=== PATIENT | female | born 1990 | race Caucasian/White ===

== ENCOUNTER 2016-05-24 08:44 | Emergency (ER) | payer OTHER ==
[~2016-05-24] VITALS: Ht 175.3 cm; Wt 86.2 kg
--- NOTE | 2016-05-24 09:03 | ED GENERAL ADULT ---
History of Present Illness General Chief Complaint: General Adult Stated Complaint: ANXIETY Source: patient, family Exam Limitations: no limitations Vital Signs & Intake/Output Vital Signs & Intake/Output Vital Signs Date Time Temp Pulse Resp B/P Pulse O2 O2 Flow FiO2 Ox Delivery Rate 05/24 1135 97.8 72 16 115/70 98 Room Air 05/24 0910 Room Air Room Air 05/24 0849 98.6 91 16 150/79 100 Room Air Allergies Coded Allergies: MDX - Seafood (SEAFOOD) ("SICK" 11/06/12) Reconcile Medications Levonorgestrel-Ethin Estradiol ([place]-28 Tablet) 0.15 MG-30 MCG TABLET 1 TAB PO DAILY CONTROL (Reported) Triage Note: pt to ed for anxiety, reports she started seeing a counselor approx 3 weeks ago "but its not getting any better" denies si/hi. Triage Nurses Notes Reviewed? yes : No Patient currently breastfeeds: No HPI: Patient presented with increasing anxiety. Patient states that she has suffered panic attacks for a few years but they have been getting much worse. Patient began seeing a therapist 3 weeks ago but her anxiety continues to escalate. Patient states that she has been unable to even go to work because her anxiety is just overwhelming. Patient denies any suicidal homicidal ideations. Patient denies any hallucinations. Patient states that her anxiety is getting in the way of her activities of daily living. Patient denies any nausea or vomiting. There's been no weight loss. Patient denies any drug use. Past History Travel History Traveled to [place] past 21 day No Medical History Any Pertinent Medical History? see below for history Neurological: NONE EENT: NONE Cardiovascular: NONE Respiratory: NONE Gastrointestinal: NONE Hepatic: NONE Renal: NONE Musculoskeletal: NONE Psychiatric: anxiety Endocrine: NONE Blood Disorders: NONE Cancer(s): NONE Surgical History Surgical History: non-contributory Psychosocial History What is your primary language Khmer Tobacco Use: Never used ETOH Use: denies use Illicit Drug Use: denies illicit drug use Family History Hx Contributory? No Review of Systems Review of Systems Constitutional: Reports: no symptoms. EENTM: Reports: no symptoms. Respiratory: Reports: no symptoms. Cardiovascular: Reports: no symptoms. GI: Reports: no symptoms. Genitourinary: Reports: no symptoms. Musculoskeletal: Reports: no symptoms. Skin: Reports: no symptoms. Neurological/Psychological: Reports: see HPI, anxiety. Hematologic/Endocrine: Reports: no symptoms. Immunologic/Allergic: Reports: no symptoms. All Other Systems: Reviewed and Negative Physical Exam Physical Exam General Appearance: well developed/nourished, alert, awake, anxious, moderate distress Head: atraumatic, normal appearance Eyes: Bilateral: PERRL, EOMI. Ears, Nose, Throat: normal pharynx, normal ENT inspection, hearing grossly normal Neck: normal inspection, supple, full range of motion Respiratory: normal breath sounds, chest non-tender, no respiratory distress, lungs clear Cardiovascular: regular rate/rhythm, normal peripheral pulses Gastrointestinal: normal bowel sounds, soft, non-tender, no organomegaly Back: normal inspection Extremities: normal inspection, normal capillary refill, normal range of motion, no edema Neurologic/Psych: no motor/sensory deficits, awake, alert, oriented x 3, normal gait, normal mood/affect Skin: intact, normal color, warm/dry Lymphatic: no anterior cervical chris Core Measures ACS in differential dx? No CVA/TIA Diagnosis: No Severe Sepsis Present: No Septic Shock Present: No Progress Differential Diagnoses I considered the following diagnoses in my evaluation of the patient: [ Electrolyte abnormality, hyperthyroidism, anxiety] Plan of Care: Orders Procedure Date/time Status Add-on Test (ER Only) 05/24 1114 Active TOTAL TRIODOTHYROXINE 05/24 0907 Active FREE T4 05/24 0907 Active ED CRISIS PSYCH CONSULT 05/24 0847 Active URINE DRUGS OF ABUSE 05/24 0846 Complete URINALYSIS 05/24 0846 Complete THYROID STIMULATING HORMONE 05/24 0846 Active HUMAN BETA HCG SCREEN 05/24 0846 Active ETHANOL 05/24 0846 Active COMPREHENSIVE METABOLIC PANEL 05/24 0846 Active CBC WITHOUT DIFFERENTIAL 05/24 0846 Complete Laboratory Tests 05/24/16 1016: Urine Opiates Screen < 100.00, Methadone Screen < 40, Barbiturate Screen < 60, Ur Phencyclidine Scrn < 6.00, Amphetamines Screen < 100, U Benzodiazepines Scrn < 85, Urine Cocaine Screen < 50, Urine Cannabis Screen < 5.00, Urinalysis LIGHT H, Urine Color YEL, Urine Clarity HAZY H, Urine pH 6.0, Ur Specific [place] 1.015, Urine Protein NEG, Urine Ketones NEG, Urine Nitrite NEG, Urine Bilirubin NEG, Urine Urobilinogen 0.2, Ur Leukocyte Esterase NEG, Ur Microscopic SEDIMENT EXAMINED, Urine RBC 1-3, Urine WBC 1-3 H, Ur Epithelial Cells MOD H, Urine Hemoglobin NEG, Urine Glucose NEG 05/24/16 0907: Anion Gap 11, Estimated GFR > 60, BUN/Creatinine Ratio 15.6, Glucose 87, Calcium 9.2, Total Bilirubin 0.5, AST 18, ALT 28, Alkaline Phosphatase 58, Total Protein 6.8, Albumin 4.0, Globulin 2.8, Albumin/Globulin Ratio 1.4, TSH 16.500 H, Free T4 Pending, Total T3 Pending, Total Beta HCG NEGATIVE, CBC w Diff MAN DIFF ORDERED, RBC 5.01, MCV 69.3 L, MCH 22.3 L, RDW 17.6 H, MPV 9.0, Gran % 58.7, Lymphocytes % 29.2, Monocytes % 7.2, Eosinophils % 4.1, Basophils % 0.8, Absolute Granulocytes 3.2, Absolute Lymphocytes 1.6, Absolute Monocytes 0.4, Absolute Eosinophils 0.2, Absolute Basophils 0, Platelet Estimate VERIFIED BY SMEAR, Hypochromic-Microcytic 1+, Poikilocytosis 1+, Anisocytosis 1+, Microcytic Cells 1+, Ovalocytes 1+, PUBS MCHC 32.1 L, Serum Alcohol < 10.0 Initial ED EKG: none Comments: PT WAS TOLD THAT SHE WAS HYPOTHYROID WHILE IN HIGH SCHOOL. SHE WAS PUYT AND MEDS FOR IT BUT SHE STOPPED THEM A FEW YEARS AGO. Departure Departure Disposition: HOME OR SELF CARE Condition: Stable Clinical Impression Primary Impression: Anxiety Referrals: [facility] Additional Instructions: FOLLOW UP AT [facility] ON THURSDAY SOMEONE WILL CALL YOU WITH AN APPOINTMENT FOR [facility] OF[facility] MEDICAL FOLLOW UP Departure Forms: Customer Survey General Discharge Information Prescriptions: Current Visit Scripts Hydroxyzine Pamoate (Vistaril) 1 CAP PO TID PRN ANXIETY #20 CAP Critical Care Note Critical Care Note Critical Care Time: non-applicable
[2016-05-24 09:20] LABS: ABSOLUTE BASOPHIL COUNT 0 /CUMM (0.0-0.2); ABSOLUTE EOSINOPHIL COUNT 0.2 /CUMM (0.0-0.7); ABSOLUTE GRANULOCYTE CT 3.2 /CUMM (1.4-6.5); ABSOLUTE LYMPH COUNT 1.6 /CUMM (1.2-3.4); ABSOLUTE MONOCYTE COUNT 0.4 /CUMM (0.10-0.60); BASOPHIL % 0.8 % (0.0-2.0); EOSINOPHIL % 4.1 % (0-5); GRANULOCYTE % 58.7 % (42.2-75.2); HEMATOCRIT 34.7 % (37-47); MEAN CORPUSCULAR HGB 22.3 PG (27.0-31.0); MEAN CORPUSCULAR HGB CONC 32.1 G/DL (33.0-37.0); MEAN CORPUSCULAR VOLUME 69.3 FL (81.0-99.0); PLATELET COUNT 204 /CUMM (130-400); RBC DISTRIBUTION WIDTH 17.6 % (11.5-14.5); RED BLOOD CELL CT 5.01 /CUMM (4.20-5.40); WHITE BLOOD CELL COUNT 5.5 /CUMM (4.8-10.8)
--- NOTE | 2016-05-24 11:34 | ED PSYCH CRISIS CONSULTATION ---
Crisis Consult Basic Assessment Date of Consult: 05/24/16 Responsible Person/Accompanied By: with mother Insurance Authorization: Insurance #1: Insurance name: CLEMENTINE WILL Phone number: Policy number: [id number] Group number: [id number] Authorization number: ED Provider: Patient's ED Provider: EVIE GARCIA,JHONATAN Shepard Primary Care Physician: Patient's PCP: PATIENT HAS NO PRIMARY CARE DR PCP's Phone Number: Current Psychiatrist: none Chief Complaint: General Adult Patient's Quote: "I feel so anxious all the time, I don't know what to do." Present Illness: Pt. was a 25 year old female who presented to the ED with her mother complaining of a high level of anxiety. She stated it had been beginning to interfere with her ability to work and this was distressing to her. 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 She stated her job was supportive and allowed to her call out if she needed. Of note, her TSH level was 16, which according to the ED DrJose would make her hypomanic and would most likely result in more lethargic feelings. ED Dr. planned to instruct pt. in follow up for Thyroid and meds. Pt.'s mother reported her daughter had told her she was "afriad to drink milk for fear that it was bad" and was afraid of driving. Pt. also reportedly felt her arms and legs had a crawling sensation like bugs under her skin. She denied AH/VH and SI/HI both past and present. Pt. accepted a [facility] appointment on 05/26 at 9:30 am. Patient's Address: [address] [place] [address] Other Phone Number: Who Do You Live With? Other (see notes) (Fiance) Family/Informants Interviewed: Mother was present for the interview and became tearful when asked about her daughter. She stated she's never seen her daughter so distraught. she reported her daughter was so anxious and upset that she spent most of the time crying and that was hard for her to see. She stated she might feel more reassured if her daughter went on medications. She stated she worried about how her daughter would do for the next two days in anticipating of daughter starting her work week (Sun-Tues) Allergies - Coded Allergies: MDX - Seafood (SEAFOOD) ("SICK" 11/06/12) Current Medications - Scheduled Medications Levonorgestrel-Ethin Estradiol ([place]-28 Tablet) 0.15 MG-30 MCG TABLET 1 TAB PO DAILY CONTROL #84 (Reported) Entered as Reported by JOE VARELA on 05/24/16 1136 Laboratory Results: Laboratory Tests 05/24/16 1016: Urine Opiates Screen < 100.00, Methadone Screen < 40, Barbiturate Screen < 60, Ur Phencyclidine Scrn < 6.00, Amphetamines Screen < 100, U Benzodiazepines Scrn < 85, Urine Cocaine Screen < 50, Urine Cannabis Screen < 5.00, Urinalysis LIGHT H, Urine Color YEL, Urine Clarity HAZY H, Urine pH 6.0, Ur Specific [place] 1.015, Urine Protein NEG, Urine Ketones NEG, Urine Nitrite NEG, Urine Bilirubin NEG, Urine Urobilinogen 0.2, Ur Leukocyte Esterase NEG, Ur Microscopic SEDIMENT EXAMINED, Urine RBC 1-3, Urine WBC 1-3 H, Ur Epithelial Cells MOD H, Urine Hemoglobin NEG, Urine Glucose NEG 05/24/16 0907: Anion Gap 11, Estimated GFR > 60, BUN/Creatinine Ratio 15.6, Glucose 87, Calcium 9.2, Total Bilirubin 0.5, AST 18, ALT 28, Alkaline Phosphatase 58, Total Protein 6.8, Albumin 4.0, Globulin 2.8, Albumin/Globulin Ratio 1.4, TSH 16.500 H, Free T4 Pending, Total T3 Pending, Total Beta HCG NEGATIVE, CBC w Diff MAN DIFF ORDERED, RBC 5.01, MCV 69.3 L, MCH 22.3 L, RDW 17.6 H, MPV 9.0, Gran % 58.7, Lymphocytes % 29.2, Monocytes % 7.2, Eosinophils % 4.1, Basophils % 0.8, Absolute Granulocytes 3.2, Absolute Lymphocytes 1.6, Absolute Monocytes 0.4, Absolute Eosinophils 0.2, Absolute Basophils 0, Platelet Estimate VERIFIED BY SMEAR, Hypochromic-Microcytic 1+, Poikilocytosis 1+, Anisocytosis 1+, Microcytic Cells 1+, Ovalocytes 1+, PUBS MCHC 32.1 L, Serum Alcohol < 10.0 Past History Past Medical History Neurological: NONE EENT: NONE Cardiovascular: NONE Respiratory: NONE Gastrointestinal: NONE Hepatic: NONE Renal: NONE Musculoskeletal: NONE Psychiatric: anxiety Endocrine: NONE Blood Disorders: NONE Cancer(s): NONE Past Surgical History Surgical History: non-contributory Psychosocial History Strengths/Capabilities: Pt. was polite and able to articulate herself. Physical Limitations (Interventions): none reported Psychiatric Treatment History Psych Treatment Psychiatric Treatment Yes Inpatient Treatment No Outpatient Treatment Yes Location of Treatment [facility] Reason for Treatment anxiety Dates of Treatment 04/30/2016 to present (3 weeks) Response to Treatment no change so far Diagnosis by History: Depression/ anxiety Substance Use/Abuse History Drug Use/Abuse Substances Used/Abused No Substance Abuse Treatment Substance Abuse Treatment Past Substance Abuse [place] No Current Mental Status Mental Status Orientation: Person, Place, Situation Affect: Anxious, Sad Speech: Soft Neuro-vegetative: WNL Appearance Appearance- Dress/Hygiene: hair dyed purpled and red, neatly done in a braid in hospital gown. Behaviors Thought Process: WNL Thought Content: WNL Memory: WNL Insight: Poor SI/HI Risk Assessment Past Suicidal Ideation/Attempts No Current Suicidal Ideation/Att No Past Homicidal Ideation/Att: No Current Homicidal Ideation/Attempts No Degree of Intent: None Danger To: none Risk Factors: high anxiety/distress Lethality Ratin (mild) PTSD Checklist PTSD Score: PTSD Score: Response Value Disturbing memories,thoughts,images of stressful experience? Not at all 1 Disturbing dreams of stressful experience from past? Not at all 1 Suddenly acting/feeling as if reliving stressful experience? Not at all 1 Unpleasant feeling when reminded of stressful experience? Not at all 1 Physical reactions when reminded of stressful experience? Not at all 1 Avoid thinking/talking of stressful exp. to avoid reactions? Not at all 1 Avoid activities/situations that remind of stressful exp.? Not at all 1 Trouble remembering important parts of stressful experience? Not at all 1 Loss of interest in things that you used to enjoy? A little bit 2 Feeling distant or cut off from other people? A little bit 2 Feeling emotionally numb/unable to love those close to you? A little bit 2 Feeling as if your future will somehow be cut short? Not at all 1 Trouble falling or staying asleep? A little bit 2 Feeling irritable or having angry outbursts? A little bit 2 Having difficulty concentrating? A little bit 2 Being super alert or watchful on guard? A little bit 2 Feeling jumpy or easily startled? Not at all 1 Total 24 ED Management Sitter: Yes Restraints: No DSM5/PS Stressors/Medical Prob Diagnosis' (DSM 5, Stressors, Medical): F41.1 generalized anxiety disorder Current GAF: 35 Departure Disposition Psych Medical Clearance Date: 05/24/16 Medically Cleared at: 1100 Time Started: 1100 Time Ended: 1125 Psychiatrist Consulted: Marcelo Ross MD Date Disposition Established: 05/24/16 Time Disposition Established: 1130 Plan for Disposition - Modality: [facility] Facility: [facility] Follow-up Appt Date: 05/26/16 Follow-Up Appt Time: 929 Contact: [facility] Rationale for Disposition: pt. is not at risk to hurt self or others. pt. should be given medication consultation at [facility] to address anxiety and follow up with PCP for thyroid issues. Additional Instructions: Follow up with PCP for thyroid. Referrals PATIENT HAS NO PRIMARY CARE DR (PCP/Family)
[2016-05-24 11:35] VITALS: BP 115/70
[2016-05-24] MEDS ORDERED: PORTIA-28 TABL1 EACH PO (11:36)
[2016-05-24] MEDS ORDERED: VISTARIL25 M1 PO (12:09)
== END 2016-05-24 12:21 ==
LOC: ERH 08:44
PROVIDERS: Emergency Medicine
DX: F41.9 Anxiety disorder, unspecified (principal)
CPT/HCPCS: 80307; 81001; G0463; G0480